=== PATIENT | female | born 1975 | race Caucasian/White ===

== ENCOUNTER → 2023-04-04 07:42 | Outpatient (CLI) | payer BC, SELFPAY ==
--- NOTE | ~2023-04-04 | MMUS_ITS ---
EXAMINATION: MM diagnostic tracy BI w maggie, US breast BI complete HISTORY: Palpable left breast lump TECHNIQUE: Additional 3-D tomosynthesis images of the breasts were performed and synthetic 2-D images were generated. CAD analysis was submitted and interpreted. High resolution complete bilateral breas t ultrasound was performed. COMPARISON: 01/09/2017 BREAST PARENCHYMAL COMPOSITION: The breasts are heterogeneously dense, which may obscure small masses FINDINGS: MAMMOGRAPHIC FINDINGS: There are no suspicious masses, calcifications or architectural distortion in either breast to sugges t malignancy. ULTRASOUND: Complete bilateral US of all 4 quadrants of the breasts and retroareolar region was reviewed. Right breast: At 1:00, 3 cm from the nipple there is a 3 mm cyst. At 8:00, 4 cm from the nipple there is a partially cystic hypoechoic mass with internal vascularity measuring 7 mm. At 9:00, 4 cm from t he nipple there is a slightly irregular shaped hypoechoic mass measuring 6 mm without posterior featu res or internal vascularity. Left breast: There the nipple there is an antiparallel 7 mm hypoechoic mass with low level internal e choes and posterior acoustic enhancement. Also near the nipple there is a 6 mm cyst.. IMPRESSION: 1. Abnormal masses of the right breast at 8:00, 4 cm from the nipple, 9:00, 4 cm from the nipple and in the left breast near the nipple measuring 7 mm. 2. Ultrasound-guided bilateral breast biopsies recommended. BI-RADS category 4, suspicious findings. Reviewed, dictated and finalized at location A. IMPRESSION: 1. Abnormal masses of the right breast at 8:00, 4 cm from the nipple, 9:00, 4 c m from the nipple and in the left breast near the nipple measuring 7 mm. 2. Ultrasound-guided bilateral breast biopsies recommended. BI-RADS category 4, suspicious findings.
== END ==
PROVIDERS: PCP Obstetrics & Gynecology; Visit Provider Obstetrics & Gynecology
DX: N63.25 Unspecified lump in the left breast, overlapping quadrants (principal); N63.13 Unspecified lump in the right breast, lower outer quadrant
CPT/HCPCS: 76641; 77062; 77066; G0279